=== PATIENT | male | born 1985 | race Caucasian/White ===

== ENCOUNTER 2020-12-14 11:44 | Emergency (ER) | payer MEDICAID, SELFPAY ==
[2020-12-14 12:09] VITALS: BP 121/88; PULSE 65; RESP 20; TEMP 36.6; O2SAT 97; BMI 24.4
--- NOTE | 2020-12-14 12:11 | XR_ITS ---
EXAMINATION: RIGHT HAND/WRIST. CLINICAL INFORMATION: Fall, pain. COMPARISON: None TECHNIQUE: 4 views. FINDINGS: There is no visible acute fracture, dislocation or subluxation seen. The soft tissues are normal. XR/XR hand wrist RT IMPRESSION: Unremarkable right hand/wrist exam.
--- NOTE | 2020-12-14 12:57 | ED_ITS ---
HPI - Extremity Problem General Chief complaint: Extremity Injury, Upper <Katelyn Funk NP - Last Filed: 12/14/20 13:54> Stated complaint: wrist injury <Katelyn Funk NP - Last Filed: 12/14/20 13:54> Time Seen by Provider: 12/14/20 12:11 <Katelyn Funk NP - Last Filed: 12/14/20 13:54> Source: patient <Katelyn Funk NP - Last Filed: 12/14/20 13:54> Mode of arrival: ambulatory <Katelyn Funk NP - Last Filed: 12/14/20 13:54> Limitations: no limitations <Katelyn Funk NP - Last Filed: 12/14/20 13:54> History of Present Illness HPI Narrative: Pt tells me he was carrying a box yesterday and lost his balance striking his right wrist. He tells me he has carpal tunnel on this same side so he has intermittent numbness/tingling and pain which is unchanged from previous. <Katelyn Funk NP - Last Filed: 12/14/20 13:54> MD Complaint: extremity pain <Katelyn Funk NP - Last Filed: 12/14/20 13:54> Onset (ago): day(s) <Katelyn Funk NP - Last Filed: 12/14/20 13:54> Pain Consistency: intermittent <Katelyn Funk NP - Last Filed: 12/14/20 13:54> Location: right <Katelyn Funk NP - Last Filed: 12/14/20 13:54> Quality: aching <Katelyn Funk NP - Last Filed: 12/14/20 13:54> Radiation: none <Katelyn Funk NP - Last Filed: 12/14/20 13:54> Relieving factors: nothing <Katelyn Funk NP - Last Filed: 12/14/20 13:54> Exacerbating factors: nothing <Katelyn Funk NP - Last Filed: 12/14/20 13:54> Associated symptoms: denies other symptoms <Katelyn Funk NP - Last Filed: 12/14/20 13:54> Related Data Allergies/Adverse reactions: Allergies Allergy/AdvReac Type Severity Reaction Status Date / Time cephalexin [From KEFLEX] Allergy Unknown UNKNOWN Unverified 08/12/20 16:54 mushroom Allergy Unknown BREAKOLUT Unverified 08/12/20 16:54 IN/OUTSIDE OF MOUTH <Katelyn Funk NP - Last Filed: 12/14/20 13:54> Review of Systems Review of Systems: Yes all other systems are reviewed and are negative <Katelyn Funk NP - Last Filed: 12/14/20 13:54> Constitutional: Constitutional: Reports no additional constitutional complaints, Denies body ache(s), Denies chills, Denies fever(s), Denies headache(s) and Denies weakness <Katelyn Funk NP - Last Filed: 12/14/20 13:54> Eyes: Eyes: Reports no additional eye complaints and Denies change in vision <Katelyn Funk NP - Last Filed: 12/14/20 13:54> ENT: Reports system reviewed and no additional complaints, except as documented, Denies dizziness, Denies headache(s), Denies nasal congestion, Denies nasal discharge and Denies neck pain <Katelyn Funk NP - Last Filed: 12/14/20 13:54> Cardiovascular: Cardiovascular: Reports no additional cardiovascular complaints, Denies chest pain, Denies leg edema and Denies dyspnea <Katelyn Funk NP - Last Filed: 12/14/20 13:54> Respiratory: Respiratory: Reports no additional respiratory complaints, Denies cough and Denies dyspnea <Katelyn Funk NP - Last Filed: 12/14/20 13:54> Gastrointestinal: Gastrointestinal: Reports no additional gastrointestinal complaints, Denies abdominal pain, Denies diarrhea, Denies nausea and Denies vomiting <Katelyn Funk NP - Last Filed: 12/14/20 13:54> Genitourinary: Genitourinary: Denies urinary incontinence <Katelyn Funk NP - Last Filed: 12/14/20 13:54> Musculoskeletal: Musculoskeletal: Reports no additional musculoskeletal complaints, Reports arthralgias, Reports joint swelling, Denies neck pain, Denies numbness and Denies tingling <Katelyn Funk NP - Last Filed: 12/14/20 13:54> Integumentary/Breasts: Skin/Breast: Reports system reviewed and no additional complaints, except as docu and Denies rash <Katelyn Funk NP - Last Filed: 12/14/20 13:54> Neurologic: Reports system reviewed and no additional complaints, except as documented, Denies Abnormal speech present, Denies dizziness, Denies headache(s), Denies numbness, Denies tingling and Denies weakness <Katelyn Funk NP - Last Filed: 12/14/20 13:54> [facility] Past Medical History Medical History: Medical History (Updated 12/15/20 @ 00:00 by Background Danehemiahon) No known health problems <Katelyn Funk NP - Last Filed: 12/14/20 13:54> Social History Social History: Social History Advance Directives: No Advance Directives Information Provided: No <Katelyn Funk NP - Last Filed: 12/14/20 13:54> Physical Exam Vital Signs: Vital Signs: Last Vital Signs Temp 97.9 F 12/14/20 12:09 Pulse 65 12/14/20 12:09 Resp 20 12/14/20 12:09 BP 121/88 12/14/20 12:09 Pulse Ox 97 12/14/20 12:09 Body Mass Index 24.4 <Katelyn Funk NP - Last Filed: 12/14/20 13:54> Vital Signs: Last Vital Signs Temp 97.9 F 12/14/20 12:09 Pulse 65 12/14/20 12:09 Resp 20 12/14/20 12:09 BP 121/88 12/14/20 12:09 Pulse Ox 97 12/14/20 12:09 Body Mass Index 24.4 <Errol Baeza MD - Last Filed: 12/22/20 07:15> Const: General: cooperative, healthy appearing, comfortable and no acute distress <Katelyn Funk NP - Last Filed: 12/14/20 13:54> Orientation/consciousness: patient oriented x3 <Katelyn Funk NP - Last Filed: 12/14/20 13:54> Limitations: no limitations <Katelyn Funk NP - Last Filed: 12/14/20 13:54> HENMT: Head: Yes normal to inspection <Katelyn Funk NP - Last Filed: 12/14/20 13:54> Ears: hearing grossly normal bilaterally <Katelyn Funk NP - Last Filed: 12/14/20 13:54> General nose exam: Normal external nose present <Katelyn Funk NP - Last Filed: 12/14/20 13:54> Face and sinus: Yes normal facial exam <Katelyn Funk NP - Last Filed: 12/14/20 13:54> Mouth: Normal oral and palatal mucosa present <Katelyn Funk NP - Last Filed: 12/14/20 13:54> Throat: Yes posterior oropharynx normal <Katelyn Funk NP - Last Filed: 12/14/20 13:54> Eyes: General: appearance normal, both eyes and all related structures <Katelyn Funk NP - Last Filed: 12/14/20 13:54> Pupils: Equal, round and reactive pupils present <Katelyn Funk NP - Last Filed: 12/14/20 13:54> Neck: Neck: Yes normal visual inspection <Katelyn Funk NP - Last Filed: 12/14/20 13:54> Chest: Chest palpation & inspection: normal inspection of the chest <Katelyn Funk NP - Last Filed: 12/14/20 13:54> Resp: Effort & Inspection: normal respiratory effort <Katelyn Funk NP - Last Filed: 12/14/20 13:54> Auscultation: clear to auscultation bilaterally <Katelyn Funk NP - Last Filed: 12/14/20 13:54> Cardio: Rate: regular rate <Katelyn Funk NP - Last Filed: 12/14/20 13:54> Rhythm: regular rhythm <ISMAEL Espinal Last Filed: 12/14/20 13:54> Peripheral pulses: Peripheral pulses 2+ throughout <Katelyn Funk NP - Last Filed: 12/14/20 13:54> GI: Inspection: Yes normal to inspection <Katelyn Funk NP - Last Filed: 12/14/20 13:54> Palpation (GI): Soft to palpation and nontender <Katelyn Funk NP - Last Filed: 12/14/20 13:54> Auscultation: normal bowel sounds <Katelyn Funk NP - Last Filed: 12/14/20 13:54> Back/Spine/Pelvis: Thoracic/Lumbar Spine: thoracic and lumbar spine normal to inspection <Katelyn Funk NP - Last Filed: 12/14/20 13:54> Skin: General skin exam: no rashes or lesions noted <Katelyn Funk NP - Last Filed: 12/14/20 13:54> Neuro: General: patient oriented x3, no focal motor deficits and normal sensation to monofilament <Katelyn Funk NP - Last Filed: 12/14/20 13:54> Cranial nerves: Yes Equal, round and reactive pupils present <Katelyn Funk NP - Last Filed: 12/14/20 13:54> Cognition (Neuro): normal cognition <Katelyn Funk NP - Last Filed: 12/14/20 13:54> Speech: No Abnormal speech present <Katelyn Funk NP - Last Filed: 12/14/20 13:54> Gait exam (Neuro): Normal gait present <Katelyn Funk NP - Last Filed: 12/14/20 13:54> Motor exam (neuro): 5/5 motor strength present throughout <Katelyn Funk NP - Last Filed: 12/14/20 13:54> Extrem: Other: tenderness over dorsal wrist and hand. No obvious swelling, deformitu, ecchymosis. NV intact distally. FROM <Katelyn Funk NP - Last Filed: 12/14/20 13:54> General: Yes normal to inspection <ISMAEL Espinal Last Filed: 12/14/20 13:54> Course Course Course Narrative: X-rays negative for fracture. Likely wrist sprain. Also has underlying carpal tunnel. Placed in wrist splint. Will have f/u with orthopedics. Reviewed worrisome signs/symptoms with patient and when to return to ED. comfortable with discharge home. <Katelyn Funk NP - Last Filed: 12/14/20 13:54> I have reviewed the chart <Errol Baeza MD - Last Filed: 12/22/20 07:15> Procedures Orthopedic Splinting/Casting Injury #1: Side: right <Katelyn Funk NP - Last Filed: 12/14/20 13:54> Upper Extremity Injury Location: wrist <Katelyn Funk NP - Last Filed: 12/14/20 13:54> Upper Extremity Immobilizer: wrist splint <Katelyn Funk NP - Last Filed: 12/14/20 13:54> MDM - Extremity (Nontraumatic) Medical Records Attestation: I reviewed the patient's medical records. <Katelyn Funk NP - Last Filed: 12/14/20 13:54> Lab Data Attestation: I reviewed the patient's lab results. <Katelyn Funk NP - Last Filed: 12/14/20 13:54> Imaging Data right wrist/hand xray: Attestation: I personally reviewed and interpreted this imaging study as follows: <Katelyn Funk NP - Last Filed: 12/14/20 13:54> Radiologist's impression: [address] [id number] ReportSigned Patient: Lindsay Aguilar#: [id number]: 1985Acct:[id number]/Sex: 35 / MADM Date: 12/14/20Loc: [email or web address].EDAttending Dr: Ordering Physician: KATELYN FUNK NP Date of Service: 12/14/20 Procedure(s): XR hand wrist RT Accession Number(s): [id number] cc: KATELYN FUNK NP~ EXAMINATION: RIGHT HAND/WRIST. CLINICAL INFORMATION: Fall, pain. COMPARISON: None TECHNIQUE: 4 views. FINDINGS: There is no visible acute fracture, dislocation or subluxation seen. The soft tissues are normal. XR/XR hand wrist RT IMPRESSION: Unremarkable right hand/wrist exam. <Katelyn Funk NP - Last Filed: 12/14/20 13:54> Discharge Plan Discharge Clinical Impression: Sprain and strain of wrist <Katelyn Funk NP - Last Filed: 12/14/20 13:54> Patient Disposition: Home, Self-Care <Katelyn Funk NP - Last Filed: 12/14/20 13:54> Instructions: Wrist Sprain (ED) <Katelyn Funk NP - Last Filed: 12/14/20 13:54> Additional Instructions: Ice to the area Motrin or tylenol for pain Elevate the extremity <Katelyn Funk NP - Last Filed: 12/14/20 13:54> Referrals: Emelyn Onofre MD [Primary Care Provider] - 2 days Kashmir Duran MD [Physician] - 2 days <Katelyn Funk NP - Last Filed: 12/14/20 13:54> Stand Alone Forms: Work/School Release <Katelyn Funk NP - Last Filed: 12/14/20 13:54> Interventions: ED Discharge Assessment Last Done: 12/14/20 13:20 <Katelyn Funk NP - Last Filed: 12/14/20 13:54> Discharge Date/Time: 12/14/20 13:21 <Katelyn Funk NP - Last Filed: 12/14/20 13:54>
== END 2020-12-14 13:21 | disposition home or self-care (01) ==
LOC: HO.ED 13:18
PROVIDERS: Emergency Provider Emergency Medicine; PCP Internal Medicine
DX: S63.501A Unspecified sprain of right wrist, initial encounter (principal); S66.911A Strain of unspecified muscle, fascia and tendon at wrist and hand level, right hand, initial encounter; W01.0XXA Fall on same level from slipping, tripping and stumbling without subsequent striking against object, initial encounter; Y93.9 Activity, unspecified; Y92.019 Unspecified place in single-family (private) house as the place of occurrence of the external cause; Y99.9 Unspecified external cause status
CPT/HCPCS: 29125; 73110; 73130; 99283

== ENCOUNTER 2022-04-23 14:35 | Emergency (ER) | payer MEDICAID, SELFPAY ==
[2022-04-23 15:12] VITALS: BP 128/77; PULSE 82; RESP 16; TEMP 37.3; O2SAT 98; BMI 24.3
[2022-04-23] MEDS: Amoxicillin/Potassium Clav 875 MG TABLET PO (15:43)
--- NOTE | 2022-04-23 16:10 | ED.EAR ---
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 and says it hurts a lot whenever the device goes in his ear Denies fever denies headache Related Data Previous Rx's Medication Instructions Recorded acetaminophen 500 mg tablet 1,000 mg PO QID PRN #30 tab 04/23/22 amoxicillin 875 mg-potassium 1 tab PO BID 7 Days #14 tab 04/23/22 clavulanate 125 mg tablet doxycycline hyclate 100 mg capsule 100 mg PO BID 7 Days #14 cap 04/23/22 ibuprofen 600 mg tablet 600 mg PO Q6H PRN #20 tab 04/23/22 oxycodone 5 mg tablet 5 mg PO Q6H PRN #14 tab 04/23/22 Allergies Allergy/AdvReac Type Severity Reaction Status Date / Time cephalexin [From KEFLEX] Allergy Unknown UNKNOWN Unverified 08/12/20 16:54 mushroom Allergy Unknown BREAKOLUT Unverified 08/12/20 16:54 IN/OUTSIDE OF MOUTH Review of Systems Review of Systems: Positive for right ear pain Negative no fever no chills no headache no neck pain new toothache no nausea no vomiting no sore throat no difficulty breathing or swallowing no loss of hearing no skin rash Yes all other systems are reviewed and are negative PMFSH Past Medical History Source: nursing notes reviewed Medical History (Updated 04/23/22 @ 16:13 by EDDIE Garza) No known health problems Social History Social History Advance Directives: No Advance Directives Information Provided: No Physical Exam Vital Signs: Vital Signs: Last Vital Signs Temp 99.2 F 04/23/22 15:12 Pulse 82 04/23/22 15:12 Resp 16 04/23/22 15:12 BP 128/77 04/23/22 15:12 Pulse Ox 98 04/23/22 15:12 BMI result Body Mass Index 24.3 General appearance is no acute distress The ears in the right ear canal a easily seen is red fluctuant pustule small, canal itself is not swollen there is no debris in the canal you can see past this pustule to the ear drum which is clear and normal in appearance, no pain on movement of the ear canal Left ear is normal The nose sinuses are not congested and nontender Pharynx is clear Dental exam there is an impacted wisdom tooth lower right which had was mildly tender but there was no gum swelling no evidence of infection in the tooth, no facial swelling Neck is supple Respiratory no distress Skin no rash Course Course Course Narrative: The small pustule in the right ear was punctured with a needle with the discharge of some whitish-yellow material and some watery bloody material Patient was started on antibiotics This is likely from the device that is placed and is here for communication at work which has been rubbing for some time and getting more and more painful so he will follow with work connection as this is probably an infection from his job Discharge Plan Discharge Clinical Impression: Abscess of right ear canal Patient Disposition: Home, Self-Care Additional Instructions: Your right ear had a small abscess I superficially opened it with a needle with discharge of some watery fluid and a small amount of pus You should not put any microphone or anything in her ear for at least 2 weeks of this has time to heal Follow with work connection for recheck in 2-3 days on Sunday or Sunday This is likely a work related infection from the device you putting in your ear rubbing the area Return to the ER any time for worse pain worse swelling fever any worse condition or any concerns Prescriptions: New acetaminophen 500 mg tablet 1,000 mg PO QID PRN (Reason: pain) Qty: 30 0RF doxycycline hyclate 100 mg capsule 100 mg PO BID 7 Days Qty: 14 0RF ibuprofen 600 mg tablet 600 mg PO Q6H PRN (Reason: pain) Qty: 20 0RF amoxicillin-pot clavulanate 875-125 mg tablet 1 tab PO BID 7 Days Qty: 14 0RF oxycodone 5 mg tablet 5 mg PO Q6H PRN (Reason: pain) Qty: 14 0RF Rx Instructions: Narcotic may cause drowsiness no driving for 6 hours after taking Referrals: [facility] [Provider Group] (Patient with infection and right ear canal after being abraded by communication device that inserts into his right ear at work, needs recheck in 2-3 days) Stand Alone Forms: Work/School Release Interventions: ED Discharge Assessment Last Done: 04/23/22 16:30 Discharge Date/Time: 04/23/22 16:36
[2022-04-23] MEDS: Ibuprofen 600 MG TABLET PO (16:24)
[2022-04-23] MEDS: Acetaminophen 325 MG TABLET 975 MG PO (16:25)
[2022-04-23] MEDS: oxyCODONE HCl Immed Release 5 MG TABLET PO (16:25)
== END 2022-04-23 16:36 | disposition home or self-care (01) ==
PROVIDERS: Emergency Provider Emergency Medicine; PCP Internal Medicine
DX: H66.41 Suppurative otitis media, unspecified, right ear (principal); H92.01 Otalgia, right ear; Z79.899 Other long term (current) drug therapy
CPT/HCPCS: 87071; 87077; 87186; 87205; 99283

== ENCOUNTER 2023-08-07 08:18 | Emergency (ER) | payer OTHER, MEDICAID, SELFPAY ==
[2023-08-07 08:34] VITALS: BP 140/90; PULSE 108; O2SAT 98
[2023-08-07 08:51] VITALS: BP 117/79; PULSE 91; RESP 16; TEMP 36.3; O2SAT 97; BMI 25.1
--- NOTE | 2023-08-07 09:05 | ED.PSYCH ---
HPI - Psych General Chief Complaint: Psychiatric Symptoms Stated Complaint: ANXIETY,DEPRESSED,SI THOUGHTS Time Seen by Provider: 08/07/23 08:32 Source: patient Mode of arrival: EMS Limitations: no limitations History of Present Illness HPI Narrative: 38 yo male with hx of substance abuse and anxiety/depression had issue at home today and reported he did not want to be alive no plans. it was issue with his kids. MD complaint: suicidal ideation and feels depressed Onset (ago): day(s) (1) Duration: intermittent History of same: Yes Relieving factors: none Exacerbating factors: drug use Context: significant life stressor Associated psychiatric symptoms: depression and suicidal ideation Associated symptoms: denies other symptoms Treatments prior to arrival: none If self harm: admits thoughts of self harm Related Data Previous Rx's Medication Instructions Recorded acetaminophen 500 mg tablet 1,000 mg (2 x 500 mg) PO QID PRN 04/23/22 pain #30 tabs amoxicillin 875 mg-potassium 1 tab PO BID 7 days #14 tabs 04/23/22 clavulanate 125 mg tablet doxycycline hyclate 100 mg capsule 100 mg PO BID 7 days #14 caps 04/23/22 ibuprofen 600 mg tablet 600 mg PO Q6H PRN pain #20 tabs 04/23/22 oxycodone 5 mg tablet 5 mg PO Q6H PRN pain #14 tabs 04/23/22 Allergies Allergy/AdvReac Type Severity Reaction Status Date / Time cephalexin [From KEFLEX] Allergy Unknown UNKNOWN Unverified 08/12/20 16:54 mushroom Allergy Unknown BREAKOLUT Unverified 08/12/20 16:54 IN/OUTSIDE OF MOUTH Review of Systems Review of Systems: Constitutional : No Fever, No Chills ENT/Mouth : No Ear Pain, No Nasal Congestion, No sore throat Eyes: No Eye Pain, No Swelling, No Redness Cardiovascular : No Chest Pain, No SOB Respiratory : No Cough, No Sputum, No Dyspnea Gastrointestinal : No Nausea, No Vomiting, No Diarrhea, No Hematochezia, No Melena Genitourinary : No Dysuria, No Urinary Frequency, No Hematuria Musculoskeletal : No Myalgias Skin : No Skin Lesions, No rash Neuro : No Weakness, No Numbness, No Paresthesias, No Dizziness, No Headache Psych : positive Anxiety, positive Depression, positive SI no HI Heme/Lymph: No Lymphadenopathy Endocrine : No Polyuria, No Polydipsia All other systems reviewed and are negative [facility] Past Medical History Attestation statement: The following information was validated with the patient. Medical History No known health problems Social History Social History (Updated 08/07/23 @ 09:40 by Dasha Rodríguez DO) Patient Tobacco Use Status: Never used Tobacco Physical Exam Vital Signs: Vital Signs: Last Vital Signs Temp 97.4 F 08/07/23 08:51 Pulse 91 08/07/23 08:51 Resp 16 08/07/23 08:51 BP 117/79 08/07/23 08:51 Pulse Ox 97 08/07/23 08:51 O2 Del Method Room Air 08/07/23 08:51 BMI result Body Mass Index 25.1 Appearance: Alert. Oriented X3. No acute distress. Eyes: Pupils equal, round and reactive to light. ENT: Pharynx normal. Neck: Normal inspection. Neck supple. CVS: Normal heart rate and rhythm. Pulses normal. Respiratory: No respiratory distress. Breath sounds normal. Abdomen: Soft and nontender. Skin: Skin warm and dry. Normal skin color. Normal skin turgor. Extremities: No lower extremity edema. No calf ttp Neuro: Oriented X 3. No motor deficit. No sensory deficit. CN2-12 intact Course Course Course Narrative: Physician observation started at 953am. Patient placed in physician observation because the patient needed more time for BHN to assess . At the time observation was started the patient's vitals were stable, patient is alert and oriented but slightly anxious, Neuro: nonfocal, CV RRR, Lungs clear Medical Decision Making Medical Decision Making [facility] Narrative: 38 yo male with PMH of substance abuse here with c/o depression and SI at this time will need labs and CARE team consult denies any medical complaints. Differential Diagnosis Differential Diagnoses: The differential diagnosis associated with the presentation includes depression, substance abuse, SI Admission/Observation Consideration of admission/observation: Escalation of care including admission/observation considered observe until CARE team has seen patient Consult Healthcare Provider Management of the patient was discussed with: Behavioral Health Provider Lab Data [facility] Lab Attestation statement: I reviewed the patient's lab results. Independent Historian Clinical information obtained from an independent historian. History obtained from or confirmed by: EMS Social Determinants Patient?s care significantly limited by Social Determinants of Health including: Problems related to primary support group Discharge Plan Discharge Clinical Impression: Acute anxiety Patient Disposition: Still a Patient Prescriptions: No Action acetaminophen 500 mg tablet 1,000 mg PO QID PRN (Reason: pain) Qty: 30 0RF doxycycline hyclate 100 mg capsule 100 mg PO BID 7 Days Qty: 14 0RF ibuprofen 600 mg tablet 600 mg PO Q6H PRN (Reason: pain) Qty: 20 0RF amoxicillin-pot clavulanate 875-125 mg tablet 1 tab PO BID 7 Days Qty: 14 0RF oxycodone 5 mg tablet 5 mg PO Q6H PRN (Reason: pain) Qty: 14 0RF Rx Instructions: Narcotic may cause drowsiness no driving for 6 hours after taking
[2023-08-07 10:10] LABS: MANUAL DIFF FLAG NO
[2023-08-07 10:13] LABS: Basophils Absolute Auto 0.1 X10*3/uL (0.0-0.2); Basophils Percent Auto 0.7 % (0-2); Eosinophils Absolute Auto 0.2 X10*3/uL (0.0-0.4); Eosinophils Percent Auto 2.1 % (0-4); Hematocrit 40.2 % (42.0-52.0); Hemoglobin 13.1 g/dl (14.0-18.0); Imm Gran Abs Auto 0.03 X10*3/uL (0.00-0.03); Imm Gran Pct Auto 0.3 % (0.0-0.4); Mean Corpuscular HGB Conc 32.6 g/dl (31.0-36.0); Mean Corpuscular Hemoglobin 29.2 pg (27.0-33.0); Mean Corpuscular Volume 89.5 fL (80.0-98.0); Mean Platelet Volume 8.7 fL (9.4-12.4); Monocytes Absolute Auto 0.8 X10*3/uL (0.1-1.2); Monocytes Percent Auto 7.8 % (2-11); Neutrophils Absolute Auto 8.6 x10*3/uL (2.0-8.3); Neutrophils Percent Auto 80.1 % (45-73); Platelet Count 352 X10*3/uL (160-400); Red Blood Count 4.49 X10*6/uL (4.60-5.80); Red Cell Distribution Width 13.5 % (11.0-16.0); White Blood Count 10.8 X10*3/uL (4.8-10.8)
[2023-08-07 10:28] LABS: COVID-19 Test Negative (Negative); IDNOW Serial# BCCEAD1C
[2023-08-07 10:31] LABS: Alanine Aminotransferase 12 U/L (0-40); Alkaline Phosphatase 64 U/L (39-117); Anion Gap 10 (12-20); Aspartate Amino Transferase 17 U/L (5-37); Bilirubin Direct 0.2 mg/dL (0.0-0.5); Bilirubin Total 0.4 mg/dL (0.0-1.0); Blood Urea Nitrogen 10 mg/dL (9-16); Calcium 9.7 mg/dL (8.4-10.2); Carbon Dioxide 32 mmol/L (22-29); Chloride 104 mmol/L (96-108); Creatinine Clr Calc Pharmacy 90.9; Estimated Glomerular Filt Rate > 60; Ethanol < 10 mg/dL; Glucose Random 104 mg/dL (60-115); Potassium 3.5 mmol/L (3.3-5.1); Sodium 142 mmol/L (135-145)
[2023-08-07 12:15] LABS: Appearance Urine Clear; Color Urine Yellow; Glucose Urine UA Negative (Negative); Leukocyte Esterase Urine Negative (Negative); Nitrite Urine Negative (Negative); PH 6.5 (5.0-9.0); Urine Blood Negative (Negative); Urine Ketones Negative (Negative); Urine Protein Negative (Neg-Trace)
[2023-08-07 12:20] LABS: Bacteria Urine None Seen (None Seen); Hyaline Casts Urine 0-2 /LPF (0-2); RBC Urine 0-2 /HPF (0-2); Squamous Epithelial Cell Urine 0-2 /HPF (0-2); WBC Urine 0-5 /HPF (0-5)
[2023-08-07 12:21] LABS: Amphetamine Screen Urine Not Detected (Not Detect); Barbiturates, Urine Not Detected (Not Detect); Benzodiazepines Screen Urine Not Detected (Not Detect); Cannabinoid Screen Urine POSITIVE (Not Detect); Cocaine Screen Urine POSITIVE (Not Detect); Fentanyl, urine Not Detected (Not Detect); Opiate Screen Urine Not Detected (Not Detect); Phencyclidine Screen Urine Not Detected (Not Detect)
--- NOTE | 2023-08-07 15:10 | PC.NURSE ---
Francois was transferred over to the POD from the main ED after self presenting with hopeless feelings after going to visit his kids this morning and having them verbalize not wanting to see him. Francois made some vague SI statements but is now denting any SI stating I just want people around who will help me . Francois was encouraged to rest after his mother told care team he has not been sleeping well. Francois ate lunch and is currently sleeping. Was offered Seroquel but declined stating I don't like how it makes me feel .
--- NOTE | 2023-08-07 15:52 | MHC.CARE ---
Pt is disposition follow up. Plan for Pt to be re-assessed by the CARE Team and/ or provider.
[2023-08-08] MEDS: Acetaminophen 325 MG TABLET 975 MG PO (00:41)
[2023-08-08 00:42] VITALS: BP 124/73; PULSE 55; RESP 17; TEMP 36.3; O2SAT 98
--- NOTE | 2023-08-08 06:14 | PC.NURSE ---
Patient slept through the night, no distress observed/reported, behavior non concerning, mood depressed tearful at time, patient is currently not on nay medication, disposition per care team is GARCIA follow up, patient will be revaluated, Tylenol 975 mg administered with + effect, labs completed/resulted, patient is observed on 15 minutes safety check, will continue to monitor.
== END 2023-08-08 08:47 | disposition home or self-care (01) ==
PROVIDERS: Emergency Medicine; Emergency Provider Emergency Medicine Emergency Medical Services; PCP Internal Medicine
DX: F41.9 Anxiety disorder, unspecified (principal); R45.851 Suicidal ideations; Z20.822 Contact with and (suspected) exposure to COVID-19; F32.A Depression, unspecified; F19.10 Other psychoactive substance abuse, uncomplicated; Z79.899 Other long term (current) drug therapy
CPT/HCPCS: 80048; 80076; 80307; 81001; 85025; 87635; 99285; S9485

== ENCOUNTER 2024-01-05 12:20 | Emergency (ER) | payer SELFPAY ==
--- NOTE | ~2024-01-05 | CT_ITS ---
EXAMINATION: CT CERVICAL SPINE WITHOUT CONTRAST CLINICAL INFORMATION: Left neck pain. Possible fall. COMPARISON: No relevant prior imaging. TECHNIQUE: Route Cdl Driver images were obtained. CT imaging of the head and cervical spine was performed without contrast. Data was reformatted into multiplanar images at the acquisition workstation. This CT examination was performed using dose optimization techniques as appropriate, variously including the following: *Automated exposure control *Adjustment of mA and/or kV according to patient size (this includes techniques or standardized protocols for targeted exams where dose is matched to indication/reason for exam; i.e. extremities or head) *Use of iterative reconstruction technique DLP: 1484 mGy-cm FINDINGS: There is no acute cervical spine fracture. No abnormal prevertebral soft tissue swelling. Canal patency is not well assessed on this examination due to inherent limitations of CT without intrathecal contrast. Visualized soft tissues of the neck are unremarkable. Lung apices are clear. CT/CT cervical spine wo IV con IMPRESSION: Unremarkable CT scan of the cervical spine. No acute fracture and no posttraumatic spinal subluxation. Grossly no spinal canal compromise. No bony neuroforaminal encroachment.
--- NOTE | ~2024-01-05 | CT_ITS ---
EXAMINATION: CT HEAD WITHOUT CONTRAST CLINICAL INFORMATION: Possible fall. Pain and facial numbness. COMPARISON: None. TECHNIQUE: Contiguous axial imaging was performed from the skull base to vertex without intravenous administration of contrast. This CT examination was performed using dose optimization techniques as appropriate, variously including the following: *Automated exposure control *Adjustment of mA and/or kV according to patient size (this includes techniques or standardized protocols for targeted exams where dose is matched to indication/reason for exam; i.e. extremities or head) *Use of iterative reconstruction technique DLP: 1484 mGy-cm. FINDINGS: There is no intracranial hemorrhage, large infarction, or mass lesion. There is no extra-axial collection. The ventricles are normal in size and configuration without evidence of hydrocephalus. There is moderate polypoid thickening within the paranasal sinuses. CT/CT head/brain wo IV con IMPRESSION: No acute intracranial abnormality.
[2024-01-05 12:34] VITALS: BP 125/83; PULSE 83; RESP 20; TEMP 37.1; O2SAT 97; BMI 29.9
--- NOTE | 2024-01-05 12:34 | ED_ITS ---
HPI - Headache General Chief Complaint: Dizziness Stated Complaint: L neck pain/Dizzy Time Seen by Provider: 01/05/24 13:34 Source: patient Mode of arrival: ambulatory Limitations: no limitations History of Present Illness HPI Narrative: Patient is a 38-year-old male presenting to the emergency department with complaint of left sided neck pain as well as numbness to left side of face, neck and radiating down left arm. Also complains of feeling lightheaded/dizzy, states that he feels dehydrated. States that when he woke this morning, he was laying on his left side/arm and had numbness upon waking. He denies blurred vision, double vision but does report that he feels as though the room is spinning. He admits to drinking alcohol last night as well as using marijuana and cocaine. States that he uses marijuana daily but a cocaine is atypical for him. Denies chest pain, palpitations, dyspnea. Denies abdominal pain, nausea, vomiting, diarrhea. Denies weakness to arms. States he is unsure if he had any falls last night while intoxicated. Denies headache. MD elicited complaint: other Onset (ago): hour(s) Onset description: on awakening Location: left, facial, neck and other (L arm) Severity: moderate Quality & Timing: aching Exacerbating factors: none Relieving factors: nothing Context: occurred at rest Treatments prior to arrival: none Related Data Home Medications Medication Instructions Recorded Confirmed No Known Home Meds 08/07/23 08/07/23 Allergies Allergy/AdvReac Type Severity Reaction Status Date / Time cephalexin [From KEFLEX] Allergy Unknown UNKNOWN Verified 01/05/24 12:36 mushroom Allergy Unknown BREAKOLUT Verified 01/05/24 12:36 IN/OUTSIDE OF MOUTH Review of Systems 2 Review of Systems: As per HPI. Yes all other systems are reviewed and are negative Constitutional: Constitutional: Reports as per HPI [facility] Past Medical History Medical History No known health problems Social History Social History (Updated 08/07/23 @ 09:40 by Dasha Rodríguez DO) Alcohol intake: current Alcohol intake frequency: a few times a week Patient Tobacco Use Status: Never used Tobacco Substance Use Type: Crack/Cocaine and Marijuana Advance Directives: No Physical Exam 2 Vital Signs: Vital Signs: Last Vital Signs Temp 98.8 F 01/05/24 12:34 Pulse 83 01/05/24 12:34 Resp 20 01/05/24 12:34 BP 125/83 01/05/24 12:34 Pulse Ox 97 01/05/24 12:34 O2 Del Method Room Air 01/05/24 12:34 BMI result Body Mass Index 29.9 Vital signs have been reviewed and appear to be correct. Blood pressure normal. Heart rate normal. Respiratory rate normal. Temperature normal. Oxygen saturation normal. Const: General: cooperative, healthy appearing and no acute distress O rientation/consciousness: oriented to person, oriented to place, oriented to time and patient oriented x3 Limitations: no limitations HEENT: Head: Yes No palpable skull fracture present, Yes normocephalic, Yes atraumatic, No Hawkins's sign, No raccoon eyes and No periorbital ecchymosis E ars: hearing grossly normal bilaterally, external ears normal, TM normal on the right and EAC's normal General nose exam: Normal external nose present, Normal nasal mucous membranes and turbinates present and Normal septum present Face and sinus: Yes face symmetric Mouth: oropharynx normal and moist mucous membranes Throat: Yes uvula midline Eyes: Pupils: Equal, round and reactive pupils present EOM: EOMs intact bilaterally Neck: Neck: Yes normal visual inspection, Yes no meningeal signs and Yes supple Chest: Chest palpation & inspection: normal inspection of the chest and normal palpation of entire chest wall Resp: Effort & Inspection: normal respiratory effort and able to speak in complete sentences Auscultation: clear to auscultation bilaterally Cardio: Rate: regular rate Rhythm: regular rhythm Heart sounds: S1 normal heart sound present and S2 normal heart sound present GI: Palpation (GI): Soft to palpation and nontender Auscultation: n ormoactive bowel sounds : General: Yes no CVA tenderness Back/Spine/Pelvis: Back: no CVA tenderness Cervical Spine: normal cervical lordosis, cervical ROM normal, cervical muscular tenderness (left lateral), pain with cervical ROM, No Cervical spine tenderness and No step off deformity T horacic/Lumbar Spine: thoracic and lumbar spine normal to inspection, thoraco- lumbar ROM normal, No thoracic spinal tenderness and No lumbar spinal tenderness Skin: General skin exam: elasticity normal and turgor normal Neuro: General: oriented to person, oriented to place, oriented to time, patient oriented x3, gait normal, tone normal, moves all extremities, Normal light touch and pain sensation, no meningeal signs, no focal motor deficits, CN's II-XI intact bilaterally and deep tendon reflexes 2+ bilaterally Cranial nerves: Yes Equal, round and reactive pupils present Cognition (Neuro): n ormal cognition Motor exam (neuro): 5/5 motor strength present throughout, Pronator motor function not present, Normal motor muscle tone present throughout and Motor abnormalities not present Sensory Exam: Normal double simultaneous stimulation for sensation Extrem: General: Yes full ROM, Yes no pedal edema and Yes no calf tenderness Left upper extremity: normal to inspection, full ROM and normal capillary refill Psych: Mental Status: mental status grossly normal Affect: normal affect Thought process: Normal thought process present NIH Stroke Scale Internal: Initial- Upon Arrival Time: 14:35 Level of Consciousness: Alert Level of Consciousness Questions: Answers both questions correctly Level of Consciousness Commands: Performs both tasks correctly Best Gaze: Normal Visual: No visual loss Facial Palsy: Normal Motor Arm (Right): No drift Motor Arm (Left): No drift Motor Leg (Right): No drift Motor Leg (Left): No drift Limb Ataxia: Absent Sensory: Normal Best Language: No aphasia Dysarthia: Normal Extinction and Inattention: No abnormality Score: 0 Course Course Course Narrative: This is an RME: Additional HPI, ROS, PE not included below will be deferred to primary provider. Patient is a 38-year-old male who presents to the emergency department for evaluation. He reports he Awoke this morning with left-sided headache extending towards his neck on the left side, dizziness, feels like he is falling to the left side. Reports drinking alcohol last night, not much however, and awoke feeling like he was still under the influence, but has not improved as the morning went on. NIH stroke scale 0. Ambulatory with a steady gait Plan: labs, EKG Medications Administered Discontinued Medications Generic Name Dose Route Start Last Admin Trade Name Freq PRN Reason Stop Dose Admin Sodium Chloride 1,000 mls @ 999 mls/hr 01/05/24 14:45 01/05/24 14:52 Ns IV 01/05/24 15:45 999 mls/hr .Q1H1M ONEAL Administration Medical Decision Making Medical Decision Making MDM Narrative: Patient is a 38-year-old male presenting to the emergency department with complaint of left sided neck pain as well as numbness to left side of face, neck and radiating down left arm. On exam patient is awake, A+Ox3, VS WNL, afebrile, normal neurological exam without focal deficits, physical exam findings as above. NIHSS 0. Given reported symptoms and physical exam findings, initial differential includes cervical radiculopathy, compression paresthesia, electrolyte abnormality. Less likely ICH, skull fracture or cervical vertebral fracture but will obtain CT head and neck. Labs unremarkable, ETOH negative. No acute abnormalities of CT head/neck. My interpretation is in agreement with radiologist's interpretation. Results discussed with patient and all questions answered. Patient reports symptom improvement after IV fluids. Advised patient to continue adequate hydration, adequate rest. Advised patient to avoid drug and alcohol use to avoid similar symptoms in the future. Instructed patient to follow-up with primary care provider. Return precautions discussed at bedside. Patient verbalized understanding of and agreement with plan. Differential Diagnosis Differential Diagnoses: The differential diagnosis associated with the presentation includes As per [facility] Admission/Observation Consideration of admission/observation: Escalation of care including admission/observation considered Lab Data [facility] Lab Attestation statement: I reviewed the patient's lab results. As per [facility] 01/05/24 13:46 01/05/24 13:46 Labs: Lab Results 01/05/24 Range/Units 13:46 WBC 9.3 (4.8-10.8) X10*3/uL RBC 5.32 (4.60-5.80) X10*6/uL Hgb 15.6 (14.0-18.0) g/dl Hct 46.9 (42.0-52.0) % MCV 88.2 (80.0-98.0) fL MCH 29.3 (27.0-33.0) pg MCHC 33.3 (31.0-36.0) g/dl RDW 13.6 (11.0-16.0) % Plt Count 268 (160-400) X10*3/uL MPV 9.1 L (9.4-12.4) fL Immature Gran % (Auto) 0.2 (0.0-0.4) % Neut % (Auto) 76.5 H (45-73) % Lymph % (Auto) 7.2 L (20-40) % Buchanan % (Auto) 14.3 H (2-11) % Eos % (Auto) 1.3 (0-4) % Baso % (Auto) 0.5 (0-2) % Lymph # (Auto) 0.7 L (1.2-4.9) X10*3/uL Buchanan # (Auto) 1.3 H (0.1-1.2) X10*3/uL Eos # (Auto) 0.1 (0.0-0.4) X10*3/uL Baso # (Auto) 0.1 (0.0-0.2) X10*3/uL Abs Immat Gran (auto) 0.02 (0.00-0.03) X10*3/uL Absolute Neuts (auto) 7.1 (2.0-8.3) x10*3/uL Absolute Nucleated RBC 0.000 (0.0-0.012) X10*3/uL Nucleated RBC % (auto) 0.0 (0.0-0.2) /100WBC Sodium 139 (135-145) mmol/L Potassium 3.8 (3.3-5.1) mmol/L Chloride 102 (96-108) mmol/L Carbon Dioxide 30 H (22-29) mmol/L Anion Gap 11 L (12-20) BUN 11 (9-16) mg/dL Creatinine 0.96 (0.5-1.4) mg/dL Estim Creat Clear Calc 106.0 Estimated GFR > 60 Random Glucose 86 (60-115) mg/dL Calcium 9.3 (8.4-10.2) mg/dL Total Bilirubin 0.6 (0.0-1.0) mg/dL AST 22 (5-37) U/L ALT 14 (0-40) U/L Alkaline Phosphatase 82 (39-117) U/L Total Protein 7.4 (6.5-8.0) g/dL Albumin 4.2 (3.5-5.0) g/dL Ethyl Alcohol < 10 mg/dL Independent Interpretation I performed an independent interpretation of an: CT Scan Interpretation: No acute abnormalities CT head and neck. Radiology Impression Discussion of test interpretation with radiology: I have reviewed the radiologist's reading. Radiologist Impression: CT/CT cervical spine wo IV con IMPRESSION: Unremarkable CT scan of the cervical spine. No acute fracture and no posttraumatic spinal subluxation. Grossly no spinal canal compromise. No bony neuroforaminal encroachment. CT/CT head/brain wo IV con IMPRESSION: No acute intracranial abnormality. External Record Review External record reviewed: Inpatient record, Office record and Outpatient record Discharge Plan Discharge Clinical Impression: Paresthesia of left arm Patient Disposition: Home, Self-Care Instructions: Paresthesia (ED) Additional Instructions: You were evaluated in the emergency department today for pain and numbness to your face, neck and arm. Your evaluation including labs and CT scans of your head and neck were normal. Your symptoms are likely due to sleeping on your left side. Be sure to drink plenty of fluids. Please follow up with your primary care provider this week. Return to the emergency department if you develop severe headache, vision changes, new weakness to your arms or legs, increasing pain, fever, chest pain, shortness of breath or any other concerning symptoms. Prescriptions: No Action No Known Home Meds
--- NOTE | 2024-01-05 12:40 | ECG_ITS ---
Test Reason : DIZZINESS Blood Pressure : / mmHG Vent. Rate : 064 BPM Atrial Rate : 064 BPM P-R Int : 132 ms QRS Dur : 088 ms QT Int : 374 ms P-R-T Axes : 052 059 056 degrees QTc Int : 385 ms Normal sinus rhythm Normal ECG When compared with ECG of 20-JUN-2010 21:48, No significant change was found Referred By: Justina Puente Electronically Signed By:MEREDITH AUSTIN
[2024-01-05 13:50] LABS: MANUAL DIFF FLAG NO
--- NOTE | 2024-01-05 13:50 | PC.NURSE ---
labs obtained,20G IV in L-ac
[2024-01-05 13:51] LABS: Basophils Absolute Auto 0.1 X10*3/uL (0.0-0.2); Basophils Percent Auto 0.5 % (0-2); Eosinophils Absolute Auto 0.1 X10*3/uL (0.0-0.4); Eosinophils Percent Auto 1.3 % (0-4); Hematocrit 46.9 % (42.0-52.0); Hemoglobin 15.6 g/dl (14.0-18.0); Imm Gran Abs Auto 0.02 X10*3/uL (0.00-0.03); Imm Gran Pct Auto 0.2 % (0.0-0.4); Lymphocytes Absolute Auto 0.7 X10*3/uL (1.2-4.9); Lymphocytes Percent Auto 7.2 % (20-40); Mean Corpuscular HGB Conc 33.3 g/dl (31.0-36.0); Mean Corpuscular Hemoglobin 29.3 pg (27.0-33.0); Mean Corpuscular Volume 88.2 fL (80.0-98.0); Mean Platelet Volume 9.1 fL (9.4-12.4); Monocytes Absolute Auto 1.3 X10*3/uL (0.1-1.2); Monocytes Percent Auto 14.3 % (2-11); Neutrophils Absolute Auto 7.1 x10*3/uL (2.0-8.3); Neutrophils Percent Auto 76.5 % (45-73); Platelet Count 268 X10*3/uL (160-400); Red Blood Count 5.32 X10*6/uL (4.60-5.80); Red Cell Distribution Width 13.6 % (11.0-16.0); White Blood Count 9.3 X10*3/uL (4.8-10.8)
[2024-01-05 14:08] LABS: Alanine Aminotransferase 14 U/L (0-40); Albumin Level 4.2 g/dL (3.5-5.0); Alkaline Phosphatase 82 U/L (39-117); Anion Gap 11 (12-20); Aspartate Amino Transferase 22 U/L (5-37); Bilirubin Total 0.6 mg/dL (0.0-1.0); Blood Urea Nitrogen 11 mg/dL (9-16); Calcium 9.3 mg/dL (8.4-10.2); Carbon Dioxide 30 mmol/L (22-29); Chloride 102 mmol/L (96-108); Estimated Glomerular Filt Rate > 60; Ethanol < 10 mg/dL; Glucose Random 86 mg/dL (60-115); Potassium 3.8 mmol/L (3.3-5.1); Sodium 139 mmol/L (135-145); Total Protein 7.4 g/dL (6.5-8.0)
[2024-01-05] MEDS: 0.9 % Sodium Chloride 1,000 ML 999 ML IV (14:52)
[2024-01-05 16:49] VITALS: BP 132/82; PULSE 78; RESP 18; TEMP 37.2; O2SAT 98
[2024-01-05] MEDS: Ibuprofen 600 MG TABLET PO (16:56)
== END 2024-01-05 17:01 | disposition home or self-care (01) ==
PROVIDERS: Nurse Practitioner Family; Emergency Provider Emergency Medicine; PCP Internal Medicine
DX: R20.2 Paresthesia of skin (principal); R42 Dizziness and giddiness
CPT/HCPCS: 36415; 70450; 72125; 80053; 80307; 85025; 93005; 96360; 96361; 99284

== ENCOUNTER → 2024-01-05 12:40 | Outpatient (BNV) | payer SELFPAY | PROVIDERS: Emergency Provider Emergency Medicine; PCP Internal Medicine; Visit Provider Internal Medicine | DX: R42 Dizziness and giddiness (principal) | CPT/HCPCS: 93010 ==

== ENCOUNTER 2025-09-08 04:16 | Emergency (ER) | payer MEDICAID, SELFPAY ==
[2025-09-08 04:22] VITALS: BP 111/65; PULSE 78; RESP 20; TEMP 36.6; O2SAT 98; BMI 24.3
--- OUTSIDE RECORDS SUMMARY | 2025-09-08 05:06 | XMS_ITS | Clinical Summary ---
Author Organization [employer] Address [address] [place] [address] Care Team Providers Care Junior Brand Manager Name Role Phone Unavailable Primary Care Provider Unavailabl e Social History Tobacco Use Types Packs/Day Years Used Date Smoking Tobacco: Never Assessed Sex and Gender Information Value Date Recorded Sex Assigned at Male 09/25/2022 10:34 AM EDT Legal Sex Male 10:34 AM EDT Gender Identity Male 09/25/2022 10:34 AM EDT Sexual Orientation Choose not to disclose 2021 10:34 AM EDT Last Filed Vital Signs Vital Sign Reading Time Taken Comments Blood Pressure 110/70 11/05/2019 12:12 AM EST Pulse 72 11/05/2019 12:12 AM EST Temperature - - Respiratory Rate - - Oxygen Saturation - - Inhaled Oxygen Concentration - - Weight 69.9 kg (154 lb) 11/05/2019 12:12 AM EST Height 167.6 cm (5' 6 ) 11/05/2019 12:12 AM EST Body Mass Index 24.86 11/05/2019 12:12 AM EST Plan of Treatment Health Maintenance Due Date Last Done Comments Depression Screening 1985 Lipid Panel 1985 Disability Screening 1985 Alcohol/Substance Use Screening 1997 Tobacco Screening 1997 Family Planning (PISQ) 2000 HPV Vaccines (1 - Male 3-dos e series) 2000 DTaP/Tdap/Td Vaccines (1 - Tdap) 2004 Hepatitis B Vaccines (1 of 3 - 19+ 3-dose series) 2004 COVID-19 Vaccine (1 - 2023-2 5 season) 2025 Influenza Vaccine (#1) 2025 11/05/2019 Zoster Vaccines (1 of 2) 2035 RSV Patients and Pa tients Aged 60 years or older (1 - 1-dose 75+ series) 2060 HIB Vaccines Aged Out No longer eligi ble based on patient's age to complete this topic Hepatitis A Vaccines Aged Out No long er eligible based on patient's age to complete this topic IPV Vaccines Aged Out No longer eligi ble based on patient's age to complete this topic Meningococcal B Vaccine Aged Out No l onger eligible based on patient's age to complete this topic Meningococcal Vaccine Aged Out No leann charles eligible based on patient's age to complete this topic Pneumococcal Vaccine: Pediat rics (0 to 5 Years) and At-Risk Patients (6 to 49) Years Aged Out No longer eligi ble based on patient's age to complete this topic RSV under 20 months Aged Out No longe r eligible based on patient's age to complete this topic Rotavirus Vaccines Aged Out No longer eligible based on patient's age to complete this topic
[2025-09-08] MEDS: Fluorescein Sodium STRIP 1 STRIP EYE-BOTH (06:45)
--- NOTE | 2025-09-08 07:55 | PC.NURSE ---
this nurse took report from [facility], patient a&ox3, ambulatory/steady gait, pt c/o bilateral eye pain, pt currently awaiting provider evaluation, vss, call bloom within reach, plan of care ongoing
[2025-09-08 07:56] VITALS: BP 108/62; PULSE 70; RESP 18; TEMP 36.7; O2SAT 97
[2025-09-08] MEDS: Erythromycin Base 0.5% Oph Oin 1 GM TUBE 1 CM EYE-BOTH (08:08)
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
[2025-09-08] MEDS: cefTRIAXone sodium 500 MG, Lidocaine HCl 1 % MPF 1 ML IM (09:11)
[2025-09-08 09:15] VITALS: BP 110/66; PULSE 73; RESP 18; TEMP 36.7; O2SAT 98
--- NOTE | 2025-09-08 09:15 | PC.NURSE ---
pt medicated per order
== END 2025-09-08 09:16 | disposition home or self-care (01) ==
PROVIDERS: Emergency Provider Emergency Medicine; PCP Internal Medicine
DX: H10.89 Other conjunctivitis (principal); S05.00XA Injury of conjunctiva and corneal abrasion without foreign body, unspecified eye, initial encounter; X58.XXXA Exposure to other specified factors, initial encounter; Y93.89 Activity, other specified; Y92.89 Other specified places as the place of occurrence of the external cause; Y99.8 Other external cause status; Z20.2 Contact with and (suspected) exposure to infections with a predominantly sexual mode of transmission
CPT/HCPCS: 96372; 99284; J0696; J2003